=== PATIENT | female | born 1960 | race Caucasian/White ===

== ENCOUNTER 2022-09-12 10:54 | Emergency (ER) | payer OTHER, SELFPAY ==
[2022-09-12 10:57] VITALS: BP 108/64; PULSE 75; RESP 18; TEMP 36.4; O2SAT 97; BMI 25.8
--- NOTE | 2022-09-12 11:19 | CRLHL7_ITS ---
For Patients: As a result of the Cures Act, medical imaging exams and procedure reports are released immediately into your electronic medical record. You may view this report before your referring provider. If you have questions, please contact your health care provider. INDICATION: reproducable sternal pain INDICATION: Sternal pain. TECHNIQUE: Chest 2 views. COMPARISON: None FINDINGS: Cardiovascular and mediastinum: Heart size and vasculature are normal in caliber and appearance. Mediastinum is within normal limits. Lungs and pleural spaces: Lungs are clear. No sign of infiltrate or mass. No sign of pleural effusion. No pneumothorax. Bones and soft tissues: No significant findings. IMPRESSION: Lungs are clear. The manubrium and body of the sternum appear intact on the lateral projection. Dictated by Saleem Pichardo MD @ 09/12/2022 11:49:21 AM Dictated by: Saleem Pichardo MD @ 09/12/2022 11:49:28 (Electronically Signed)
--- NOTE | 2022-09-12 11:21 | ED_ITS ---
HPI - General Adult General Chief complaint: Cough Stated complaint: Chest pain, labored breathing Time Seen by Provider: 09/12/22 11:02 History of Present Illness HPI narrative: This 62-year-old female comes in reporting reproducible chest discomfort over the past several days. She does not report any shortness of breath or fevers. She does not have any particular injury event or strenuous activity but was coughing some with a COVID infection that began about 3 weeks ago. She has since then tested negative for COVID but reports this discomfort in the lower sternal area that is reproducible with pressing in this area and when taking a deep breath. Related Data Home Medications Medication Instructions Recorded Confirmed fluoxetine 09/12/22 simvastatin 09/12/22 Previous Rx's Medication Instructions Recorded ketorolac 10 mg tablet 10 mg PO Q8H 5 days #15 tabs 09/12/22 methylprednisolone 4 mg tablets in See Rx Instructions PO .COMPLEX 09/12/22 a dose pack (Medrol (Darius)) #21 ea Allergies Allergy/AdvReac Type Severity Reaction Status Date / Time No Known Drug Allergies Allergy Verified 09/12/22 11:01 Review of Systems Status of ROS: Reports: 10 or more systems reviewed and unremarkable except as noted in History and below Narrative: Constitutional: No fevers, no weight gain or loss. Eyes: No discharge. No vision changes. HENT: No congestion, no sore throat, no ear pain. Cardiovascular: No palpitations. Respiratory: No shortness of breath, no wheezes. Occasional cough. Chest: Discomfort as described above. Gastrointestinal: No abdominal pain, no vomiting, no diarrhea. Genitourinary: No dysuria, no hematuria. Musculoskeletal: Normal range of motion. Skin: No rashes, no pruritis. Neurological: No dizziness, weakness, sensory change, speech change. Endo/Heme/Allergies: No bruising or bleeding. No polydipsia. Pysch: no suicidality, no anxiety, no insomnia. All other systems reviewed and are negative. PFSH PFSH Social History Smoking Status: Never smoker Do you use any of these nicotine containing products: None How often do you have a drink containing alcohol: never AUDIT-C Alcohol total score: 0 Non-prescribed substance use: denies use Exam Narrative: Exam Narrative: Constitutional: Well-developed, well-nourished, no acute distress. HEENT: Normocephalic, atraumatic. Neck: Normal range of motion. Nontender. Supple. Heart: Regular. No murmurs. Normal rate. Intact distal pulses. Lungs: Clear to auscultation. No wheezes, rhonchi, or rales. Chest: Pain is distinctly manifested when palpating in the lower sternal area. Abdomen: Normal bowel sounds. Nontender. No rebound tenderness. Genitalia: Deferred. Back: No midline tenderness. Normal range of motion. Extremities: Normal range of motion. No injury. Skin: Intact. No rash. Warm. No erythema or pallor. Neurologic: No altered sensation. No weakness. Alert and oriented. Psychiatric: No suicidality. No anxiety or depression. No insomnia. Nursing notes and vitals signs are reviewed. Const: Vital Signs, click to edit/add: Vital Signs - 24 hr 09/12/22 10:57 Temperature 97.5 F L Pulse Rate [Right Pulse Oximeter] 75 Respiratory Rate 18 Blood Pressure [Ri ght Upper Arm] 108/64 Pulse Oximetry 97 Oxygen Delivery Me thod Room Air Course Vital Signs Vital signs: Initial Vital Signs Temperature 97.5 F L 09/12/22 10:57 Temperature Source Temporal Artery Scan 09/12/22 10:57 Pulse Rate 75 09/12/22 10:57 Respiratory Rate 18 09/12/22 10:57 Blood Pressure 108/64 09/12/22 10:57 Blood Pressure Mean 78 09/12/22 10:57 Blood Pressure Position Sitting 09/12/22 10:57 Pulse Oximetry 97 09/12/22 10:57 Oxygen Delivery Method 09/12/22 10:57 Vital Signs Temperature 97.5 F L 09/12/22 10:57 Pulse Rate 75 09/12/22 10:57 Respiratory Rate 18 09/12/22 10:57 Blood Pressure 108/64 09/12/22 10:57 Pulse Oximetry 97 09/12/22 10:57 Oxygen Delivery Method 09/12/22 10:57 Temperature 97.5 F L 09/12/22 10:57 Pulse Rate 75 09/12/22 10:57 Respiratory Rate 18 09/12/22 10:57 Blood Pressure 108/64 09/12/22 10:57 Pulse Oximetry 97 09/12/22 10:57 Oxygen Delivery Method 09/12/22 10:57 Medical Decision Making MDM Narrative Medical decision making narrative: This patient comes in with reproducible chest discomfort in the lower sternal area. She arrives with normal vital signs. She did have COVID infection 3 weeks ago and since then has had negative testing for this. She does not report any particular injury event or strenuous activity other than some coughing which is much less now. A chest x-ray is ordered and returns with no acute findings. This patient's chest discomfort is reproducible suggesting chest wall pain. She did receive a prescription for Toradol and Medrol Dosepak. I did discuss other lab and imaging options which the patient declined in a process of shared decision making. Imaging Data Chest x-ray: Radiologist's impression: Lungs are clear. The manubrium and body of the sternum appear intact on the lateral projection Discharge Plan Discharge Clinical Impression: Acute chest wall pain Patient Disposition: Home, Self-Care Condition: Stable Additional Instructions: Take medications as needed and directed. Follow up with MD or return if worsening. Prescriptions: New ketorolac 10 mg tablet 10 mg PO Q8H 5 Days Qty: 15 0RF methylprednisolone [Medrol (Darius)] 4 mg tablets,dose pack See Rx Instructions .ROUTE .COMPLEX Qty: 21 0RF Rx Instructions: orally per package directions No Action simvastatin fluoxetine Follow Up/Referrals: Provider,Not a Local [Primary Care Provider] - Stand Alone Forms: [employer] Info Instructions
--- OUTSIDE RECORDS SUMMARY | 2022-09-12 11:37 | XMS_ITS | Clinical Summary ---
:1960 Author Organization [facility] [place] [address] Care Team Providers Name Role Phone Stephanie Vargas MD Primary Care Provider Allergies No known active allergies Medications Medication Sig Dispensed Refills Start End Status Date Date ascorbic acid, vitamin Take 1,000 0 Active C, (VITAMIN C) 1,000 mg mg by mouth tablet once daily. cholecalciferol (VITAMIN Take 1,000 0 Active D) 1,000 unit capsule units by mouth once daily. omega-3 fatty acids Take 1,000 0 Active (FISH OIL) cap mg by mouth once daily. fluticasone (50 mcg per INHALE 2 0 07/17/20 Active actuation) nasal SPRAYS INTO 22 solution (FLONASE) AFFECTED NOSTRIL(S) ONCE DAILY. FLUoxetine (PROZAC) 40 Take 1 90 Capsule 3 08/21/20 Active mg capsuleIndications: Capsule (40 22 023 Major depressive mg) by mouth disorder, recurrent every episode, moderate (HC) morning. fexofenadine (NIKA) Take 180 mg 90 Tablet 3 08/21/2011/19 Active 180 mg by mouth 22 023 tabletIndications: once daily Seasonal allergic if needed rhinitis, unspecified for Allergy trigger Symptoms. simvastatin (ZOCOR) 20 Take 1 90 Tablet 3 08/21/20 Active mg tabletIndications: Tablet (20 22 Pure mg) by mouth hypercholesterolemia once daily. simvastatin (ZOCOR) 20 TAKE 1 90 Tablet 1 02/23/20 Discontinued mg tabletIndications: TABLET BY (Reorder Pure MOUTH EVERY (E-cance l not hypercholesterolemia DAY sent)) fexofenadine (NIKA) TAKE 1 90 Tablet 0 07/18/20 Discontinued 180 mg TABLET BY 022 (Reorder tabletIndications: MOUTH EVERY (E-cancel not Seasonal allergic DAY se nt)) rhinitis, unspecified NEEDED trigger FLUoxetine (PROZAC) 40 TAKE 1 30 Capsule 0 08/13/20 Discontinued mg capsuleIndications: CAPSULE BY (Reorder Major depressive MOUTH EVERY ( E-cancel not disorder, recurrent DAY IN THE sent)) episode, moderate (HC) MORNING Active Problems Problem Noted Date Pure hypercholesterolemia 12/03/2020 Major depressive disorder, recurrent episode, moderate 12/03/2020 Seasonal allergic rhinitis 12/03/2020 Headache 12/03/2020 Diarrhea 12/03/2020 Encounters Date Type Specialty Care Team Description 09/12/2022 Nurse Triage Stephanie Vargas MD Chest Pain 08/21/2022 Office Visit Stephanie Vargas MD Medica tion Management 08/21/2022 Travel 08/20/2022 Refill Stephanie Vargas MD Refill Request (Simvastatin) 08/11/2022 Refill Stephanie Vargas MD Refill Request (Fluoxetine) 07/16/2022 Refill Stephanie Vargas MD Refill Request (Fluoxetine, Fexofenadine) from Last 3 Months Immunizations Name Administration Dates Next Due COVID-19 vaccine ([employer] 08/21/2022 30mcg/0.3mL) 12YO+ BIVALENT BOOSTER PF, MDV COVID-19 vaccine ([employer] 03/23/2021, 03/02/2021 30mcg/0.3mL) PF, MDV Influenza A (H1N1), Inactivated 08/09/2020 Influenza Intradermal PF 18-64 yrs 07/18/2012 Influenza Virus, Unspecified 08/22/2018, 09/01/2008 Influenza, IIV3 (Age >=3 years) 09/22/2015, 09/12/2011, 08/06, 10/23/2002 Influenza, IIV4 09/22/2015 Influenza, IIV4 (Age 6-35 Mos) 08/22/2018 Influenza, Intradermal Inactivated 08/14/2016, 09/11/2014, 0 07/18/2012 Influenza, Intradermal, Quadrivalent, 08/14/2016 Pf Influenza,CCIIV4 PRESERV FREE 07/10/2022, 08/28/2021, 2019, 08/11/2019, 09/21/2017 TD, UNSPECIFIED 11/09/2003 Tdap 01/10/2017, 02/14/2011 Family History Medical History Relation Name Comments Depression Daughter Diabetes Father Thyroid Disease Mother Depression Other 2nd daughter Diabetes Sister Cancer-breast No Family History Relation Name Status Comments Daughter Father Mother Other 2nd daughter Other Sister Social History Tobacco Use Types Packs/Day Years Used Date Former Smoker Quit: 11/05/18 85 Smokeless Tobacco: Never Used Tobacco Cessation: Counseling Given: Yes Alcohol Use Standard Drinks/Week Comments Never 0 (1 standard drink = 0.6 oz pure alcoho l) Alcohol Habits Answer Date Recorded How often do you have a drink containing alcohol? Never 01/17/2021 How many drinks containing alcohol do you have on a typical Not asked day when you are drinking? How often do you have six or more drinks on one occasion? No t asked Comment: Not asked Sex Assigned at Date Recorded Not on file COVID-19 Exposure Response Date Recorded In the last 10 days, have you been in contact with No / Unsu re 08/21/2022 2:13 PM CDT someone who was confirmed or suspected to have Coronavirus/COVID-19? Obstetrics History Last Filed Vital Signs Vital Sign Reading Time Taken Comments Blood Pressure 116/66 08/21/2022 2:23 PM CDT Pulse 88 08/21/2022 2:23 PM CDT Temperature 36.7 ??C (98.1 ??F) 08/21/2022 2:23 PM CDT Respiratory Rate 16 08/21/2022 2:23 PM CDT Oxygen Saturation 98% 08/21/2022 2:23 PM CDT Inhaled Oxygen Concentration - - Weight 81 kg (178 lb 9.6 oz) 08/21/2022 2:23 PM CDT Height 172.7 cm (5' 8) 08/21/2022 2:23 PM CDT Body Mass Index 27.16 08/21/2022 2:23 PM CDT Plan of Treatment Health Maintenance Due Date Last Done Comments Zoster (shingles) series for age 0806/17/2008 50+ (1 of 2) Mammogram for age 45-75 09/09/2021 09/09/2020, 05/02/2017, 01/05/2016 BMI (ht and wt on same day) for 08/21/2023 08/21/2022, 08/06, age 18+ 08/22/2021, Additional history exists Depression screening for age 12+ 08/21/2023 08/21/2022, , 03/29/2021 Fecal testing sDNA-FIT 09/05/2025 09/05/2022 (Cologuard) for age 45-75 Tetanus booster 01/10/2027 01/10/2017, 02/14/2011, 11/09/2003 Lipids for age 45-75 08/21/2027 08/21/2022, 08/22/2021 Tdap Completed 01/10/2017, 02/14/2011 Influenza for age 50-64 Completed 07/10/2022, 08/28/2021, 08/09/2020, Additional history exists COVID-19 vaccine series Completed 08/21/2022, 03/23/2021, 03/02/2021 Hepatitis C screening for age Completed 08/21/2022 18-79 Procedures Procedure Name Priority Date/Time Associated Diagnosis Comme nts SDNA-FIT EXTERNAL Routine 09/05/2022 7:45 Colon cancer screeni ng Results for this (COLOGUARD) AM CDT procedure are i n the results section. ANTI HCV Routine 08/21/2022 2:55 Need for hepatitis C Resu lts for this PM CDT screening test procedure are in the results section. TSH WITH REFLEX Routine 08/21/2022 2:55 Pure hypercholesterole eileen Results for this PM CDT procedure are i n the results section. LIPID PANEL W Routine 08/21/2022 2:55 Pure hypercholesterolemi a Results for this REFLEX MEASURED PM CDT procedure ar e in LDL the results section. COMP METABOLIC Routine 08/21/2022 2:55 Pure hypercholesterolem ia Results for this PANEL PM CDT procedure are i n the results section. from Last 3 Months Results SDNA-FIT EXTERNAL (COLOGUARD) (09/05/2022 7:45 AM CDT) [facility] Method Time Signature NONINV COLON Negative Negative 09/09/2022 [employer] [place] DNA+OCC 3:07 AM CDT LABORATORIES DOREEN ELIJAHCat ([facility] #:[id number]) Comment: NEGATIVE TEST RESULT. A negative Cologua rd result indicates a low likelihood that a colorectal cancer (CRC) or advanced adenoma (adenomatous polyps with more advanced pre-malignant features) ??is presen t. The chance that a person with a negat araceli Cologuard test has a colorectal cancer is less than 1 in 1500 (negative predictive value >99.9%) or has an ??advanced adenoma is less than ??5.3% (negative predictive value 94.7%). These data are based on a prospective cross-sectional study of 10,000 individuals at average risk for colorectal cancer who were screened with both Cologuard and colonoscopy. ( Paula T. et al, N Engl J Med 2014;37 0(14):7528-5840) The normal value (reference range) for this assay is negative. COLOGUARD RE-SCREENING RECOMMENDATION: P eriodic colorectal cancer screening is an important part of preventive healthcare for asymptomatic individuals at average risk for colorectal cancer. ??Following a negative Cologuard result, the [place] Cancer Society and U.S. Multi-Society Task Force screening guidelines recommend a Cologuard re-screening interval of 3 years. References: [place] [employer] Jenny huang for Colorectal Cancer Screening: https://www.cancer.org/cancer/fuebf-judsyd-gbvazz/thiehygyi-dzottsojm-dctrijc/shweta MAK, Marky YUEN, Jatinder TORRES, Colorectal Cancer Screenin g: Recommendations for Physicians and Patients from the U.S. Multi-Society Task Force on Colorectal Cancer Screening , Am J Gastroenterology 2017; 112:0424-8539. TEST DESCRIPTION: Composite algorithmic analysis of stool DNA-biomarkers with hemoglobin immunoassay. ?? Quantitative values of individual biomarkers are not reportable and are not associated with indiv idual biomarker result reference ranges. Cologuard is intended for colorectal cancer screening of adults of either sex, 45 years or older, who are at average- risk for colorectal cancer (CRC). Cologuard has been approved for use by the U.S. FD A. The performance of Cologuard was established in a cross sectional study of average-risk adults aged 50-84. Cologuard performance in patients ages 45 to 49 year s was estimated by sub-group analysis of near-age groups. Colonoscopies performed for a positive result may find as the most clinically significant lesion: colorectal cancer [4.0%], advanced adenoma (in cluding sessile serrated polyps greater than or equal to 1cm diameter) [20%] or non- advanced adenoma [31%]; or no colorectal neoplasia [45%]. These estimates are derived from a prospective cross-sectio nal screening study of 10,000 individual s at average risk for colorectal cancer who were screened with both Cologuard and colonoscopy. (Paula Parks al, N Engl J Med 2014;370(14):8903-0541.) Cologuar d may produce a false negative or false positive result (no colorectal cancer or precancerous polyp present at colonoscopy follow up). A negative Cologuard test result does not guarantee the absence of CRC or advanced adenoma (pre-cancer). Th e current Cologuard screening interval is every 3 years. ([place] [employer] and U.S. Multi-Society Task Force). Cologuard performance data in a 10,000 patie nt pivotal study using colonoscopy as th e reference method can be accessed at the following location: www.[employer]CR.[employer]/results. Additional description of the Cologuard test process, warnings and precautions can be found at www.[employer].com. Specimen Anatomical Collection Method Collection Time Receive d Time (Source) Location / / Volume Laterality Stool specimen 09/05/2022 7:45 AM 022 (specimen) CDT 12:14 PM CDT (Rectum) Stephanie Vargas MD URINE Performing Organization Address City/State/ZIP Code Phon e Number [employer] ([address] [address] #:[id number]) TSH WITH REFLEX (08/21/2022 2:55 PM CDT) P athologist Signature TSH 3.10 0.35 - 4.94 08/22/2022 [facility] uIU/mL 4:30 AM CDT LABORATORY-CENTR AL LABORATORY Specimen Anatomical Collection Method / Collection Time Recei fadumo Time (Source) Location / Volume Laterality Blood BLOOD SPECIMEN / Venipuncture / 08/21/2022 2:55 2021 2:57 Unknown Unknown PM CDT PM CDT Narrative [facility] LABORATORY-CENTRAL LABORAT ORY - 08/22/2022 4:30 AM CDT In Adults, TSH values between 5.00 and 10.00 uIU/ml do not necessarily indicate the presence of Hyp othyroidism. Correlation with clinical findings such as presence of goiter and/or Thyroperoxidase (TPO) Antibody ma y be helpful. For more information please refer to SANG 20 ; 291: 228-238. Stephanie Vargas MD CHEMISTRY Performing Organization Address City/State/ZIP Code Phon e Number [facility] [id number] [place] [address] LABORATORY-CENTRAL 2000 LABORATORY LIPID PANEL W REFLEX MEASURED LDL (08/21/2022 2:55 PM CDT) [facility] gist Method Time Signature CHOLESTEROL,TOTAL 197 100 - 199 08/22/2022 [facility] mg/dL 4:04 AM CDT LABORATORY-JO TRAL LABORATORY TRIGLYCERIDES 128 <150 08/22/2022 [facility] mg/dL 4:04 AM CDT LABORATORY-OJ TRAL LABORATORY HDL CHOLESTEROL 53 >40 mg/dL 08/22/2022 [facility] 4:04 AM CDT LABORATORY-JO TRAL LABORATORY NON-HDL 144 <145 08/22/2022 [facility] CHOLESTEROL mg/dl 4:04 AM CDT LABORATORY-JO TRAL LABORATORY CHOL/HDL RATIO 3.72 <4.50 08/22/2022 [facility] 4:04 AM CDT LABORATORY-JO TRAL LABORATORY LDL CHOLESTEROL 118 <=130 08/22/2022 [facility] mg/dL 4:04 AM CDT LABORATORY-JO TRAL LABORATORY VLDL CHOLESTEROL 26 <=30 08/22/2022 [facility] mg/dL 4:04 AM CDT LABORATORY-JO TRAL LABORATORY PROVIDER ORDERED RANDOM 08/22/2022 [facility] STATUS 4:04 AM CDT LABORATORY-JO TRAL LABORATORY Specimen Anatomical Collection Method / Collection Time Recei fadumo Time (Source) Location / Volume Laterality Blood BLOOD SPECIMEN / Venipuncture / 08/21/2022 2:55 2021 2:57 Unknown Unknown PM CDT PM CDT Stephanie Vargas MD CHEMISTRY Performing Organization Address City/[facility] Phon e Number [facility] [address] [place] [address] LABORATORY-CENTRAL 1999 LABORATORY ANTI HCV (08/21/2022 2:55 PM CDT) [facility] g[facility] Method Time Signature HEPATITIS C Non-Reacti Non-Reacti 08/22/2022 [facility] ANTIBODY ve ve 4:16 AM CDT LABORATORY-JO TRAL LABORATORY Comment: Antibodies to HCV not detected; does not exclude the possibility of exposure to HCV. Specimen Anatomical Collection Method / Collection Time Recei fadumo Time (Source) Location / Volume Laterality Blood BLOOD SPECIMEN / Venipuncture / 08/21/2022 2:55 2021 2:57 Unknown Unknown PM CDT PM CDT Stephanie Vargas MD SEND OUTS Performing Organization Address City/[facility] Phon e Number [facility] [address] [place] [address] LABORATORY-CENTRAL 1999 LABORATORY (ABNORMAL) COMP METABOLIC PANEL (08/21/2022 2:55 PM CDT) Analysis Performed At Path logist Time Signature SODIUM 141 135 - 145 08/22/2022 [facility] mmol/L 4:04 AM CDT LABORATORY-JO TRAL LABORATORY POTASSIUM 4.3 3.5 - 5.0 08/22/2022 [facility] mmol/L 4:04 AM CDT LABORATORY-JO TRAL LABORATORY CHLORIDE 109 98 - 110 08/22/2022 [facility] mmol/L 4:04 AM CDT LABORATORY-JO TRAL LABORATORY CO2,TOTAL 21 21 - 31 08/22/2022 [facility] mmol/L 4:04 AM CDT LABORATORY-JO TRAL LABORATORY ANION GAP 11 5 - 18 08/22/2022 [facility] 4:04 AM CDT LABORATORY-JO TRAL LABORATORY GLUCOSE 88 65 - 100 08/22/2022 [facility] mg/dL 4:04 AM CDT LABORATORY-JO TRAL LABORATORY CALCIUM 9.3 8.5 - 10.5 08/22/2022 [facility] mg/dL 4:04 AM CDT LABORATORY-JO TRAL LABORATORY BUN 18 8 - 25 08/22/2022 [facility] mg/dL 4:04 AM CDT LABORATORY-JO TRAL LABORATORY CREATININE 0.96 0.57 - 08/22/2022 [facility] 1.11 mg/dL 4:04 AM CDT LABORATORY-JO TRAL LABORATORY BUN/CREAT RATIO 19 10 - 20 08/22/2022 [facility] 4:04 AM CDT LABORATORY-JO TRAL LABORATORY ALBUMIN 4.3 3.2 - 4.6 08/22/2022 [facility] g/dL 4:04 AM CDT LABORATORY-JO TRAL LABORATORY PROTEIN,TOTAL 6.5 6.0 - 8.0 08/22/2022 [facility] g/dL 4:04 AM CDT LABORATORY-JO TRAL LABORATORY GLOBULIN 2.2 2.0 - 3.7 08/22/2022 [facility] g/dL 4:04 AM CDT LABORATORY-JO TRAL LABORATORY A/G RATIO 2.0 1.0 - 2.0 08/22/2022 [facility] 4:04 AM CDT LABORATORY-JO TRAL LABORATORY BILIRUBIN,TOTAL 0.9 0.2 - 1.2 08/22/2022 [facility] mg/dL 4:04 AM CDT LABORATORY-JO TRAL LABORATORY ALK PHOSPHATASE 56 50 - 136 08/22/2022 [facility] IU/L 4:04 AM CDT LABORATORY-JO TRAL LABORATORY ALT (SGPT) 28 8 - 45 08/22/2022 [facility] IU/L 4:04 AM CDT LABORATORY-JO TRAL LABORATORY AST (SGOT) 28 2 - 40 08/22/2022 [facility] IU/L 4:04 AM CDT LABORATORY-JO TRAL LABORATORY eGFR 66 (L) >90 08/22/2022 [facility] mL/min/1.7 4:04 AM CDT LABORATORY-JO 3m2 TRAL LABORATORY Comment: As of 2022, eGFR is calcu lated by the CKD-EPI creatinine equation without race adjustment. eGFR can be inf luenced by muscle mass, exercise, and diet. The reported eGFR is an estimation only and is only applicable if the renal function is stable. Specimen Anatomical Collection Method / Collection Time Recei fadumo Time (Source) Location / Volume Laterality Blood BLOOD SPECIMEN / Venipuncture / 08/21/2022 2:55 2021 2:57 Unknown Unknown PM CDT PM CDT Stephanie Vargas MD CHEMISTRY Performing Organization Address City/State/ZIP Code Phon e Number [facility] [address] [place] [address] LABORATORY-CENTRAL 2000 LABORATORY from Last 3 Months Insurance Payer Benefit Plan / Subscriber ID Effective Dates Phone Addre ss Type ADTZ HP [id number] 2010-Presen [address] [place] [address] Care Teams Admissions Assistant Relationship Specialty Start Date End Date Stephanie Vargas MD PCP - General Family Practice 12/29/15 [id number] [place], [place] [id number]
== END 2022-09-12 12:50 | disposition home or self-care (01) ==
PROVIDERS: Emergency Provider Emergency Medicine Emergency Medical Services
DX: R07.89 Other chest pain (principal)
CPT/HCPCS: 71046; 99283; 99284